=== PATIENT | female | born 1955 ===

== ENCOUNTER 2018-01-14 18:54 | Emergency (ER) | payer MEDICAID ==
--- NOTE | 2018-01-14 20:02 | ED PDOC ---
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 Patient is Romansh speaking, history obtained through scribe. Patient reports she was walking outside when a rock punctured through her flip flop and injured her left foot. Patient notes progressively worsening pain along the bottom of her sole. Patient denies any other injuries, fever, chills or any other complaints. Time/Duration: Other (2 days ago) Symptom Course: Worsening Quality: Other Context: Street Past Medical History - Provider Review Nursing Documentation Reviewed: Yes - Infectious Disease Hx of Infectious Diseases: None - Tetanus Immunization Tetanus Immunization: Unknown - Cardiac Hx Hyperlipemia: Yes - Psychiatric Hx Depression: No Hx Emotional Abuse: No Hx Physical Abuse: No Hx Substance Use: No - Surgical History Hx Section: Yes - Suicidal Assessment Feels Threatened In Home Enviroment: No Family/Social History - Physician Review Nursing Documentation Reviewed: Yes Family/Social History: No Known Family HX Smoking Status: Never Smoked Hx Alcohol Use: No Hx Substance Use: No Allergies/Home Meds Allergies/Adverse Reactions: Allergies pollen extracts Allergy (Verified 01/14/18 20:22) SWELLING Home Medications: Home Meds Medication Instructions Recorded Confirmed Aspirin [Aspirin Chewable] 81 mg PO DAILY 01/14/18 01/14/18 Atorvastatin [Lipitor] 10 mg PO DAILY 01/14/18 01/14/18 Review of Systems - Physician Review All systems were reviewed & negative as marked: Yes - Review of Systems Constitutional: absent: Fevers, Night Sweats Musculoskeletal: Other (left foot pain) Physical Exam Vital Signs Temp Pulse Resp BP Pulse Ox 01/14/18 20:15 98.5 F 71 18 108/71 97 Appearance: Positive for: Well-Appearing, Non-Toxic, Comfortable Pain Distress: None Mental Status: Positive for: Alert and Oriented X 3 - Systems Exam Head: Present: Atraumatic, Normocephalic Pupils: Present: PERRL Extroacular Muscles: Present: EOMI Conjunctiva: Present: Normal Lower Extremity: Present: Normal Inspection, NORMAL PULSES, Normal ROM, Neurovascularly Intact, Other (Minimal puncture to the plantar aspect of the left foot). No: Edema, Tenderness, Swelling, Erythema, Deformity, Temperature Abnormalties Neurological: Present: GCS=15, CN II-XII Intact, Speech Normal Skin: Present: Warm, Dry, Normal Color. No: Rashes Psychiatric: Present: Alert, Oriented x 3, Normal Insight, Normal Concentration Medical Decision Making ED Course and Treatment: 01/14/18 19:58 Impression: A 62 year old female with left foot pain Plan: -- Left foot xray -- Cipro and Toradol -- Reassess and disposition Progress Notes: 01/14/18 21:41 pt reassesed xr neg as read by me. no surroudning erythema, drainage, palpable foreign body, contrary to triage no erythema, however will give prophalactic antibitoics. advise close outpt fu. 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 No Sleep Is patient sleeping during reassessment? No Presence of Pain Presence of Pain Yes Pain Scale Used Pain Scale Used Numeric Location Left, Right or Bilateral Left IM Administration Charges Document 01/14/18 20:25 JOL (Rec: 01/14/18 20:25 JOL [id number]) Injection Site MAR Injection Site Left Deltoid Charges for Administration # of IM Administrations 1 - Scribe Statement The provider has reviewed the documentation as recorded by the Scribe Marielle Palomino Provider Scribe Attestation: All medical record entries made by the Scribe were at my direction and personally dictated by me. I have reviewed the chart and agree that the record accurately reflects my personal performance of the history, physical exam, medical decision making, and the department course for this patient. I have also personally directed, reviewed, and agree with the discharge instructions and disposition. Disposition/Present on Arrival - Present on Arrival Any Indicators Present on Arrival: No History of DVT/PE: No History of Uncontrolled Diabetes: No Urinary Catheter: No History Surgical Site Infection Following: None - Disposition Have Diagnosis and Disposition been Completed?: Yes Diagnosis: Puncture wound of foot Disposition: HOME/ ROUTINE Disposition Time: 09:45 Patient Problems: Current Active Problems Problem Status Onset Puncture wound of foot Acute Condition: STABLE Discharge Instructions (ExitCare): Wound Care Print Language: SAO TOMEAN Additional Instructions: follow up with specialist. you may need further eval and diagnostic workup as an outpatient. return to er with worsening symptoms or concerns. Prescriptions: Ciprofloxacin [Cipro] 500 mg PO BID #14 tab Referrals: Theo Cadet DPM [Staff Provider] - Follow up with primary Anayeli Rush DO [Primary Care Provider] - Follow up with primary
[2018-01-14 20:15] VITALS: BP 108/71; PULSE 71; RESP 18; TEMP 98.5; O2SAT 97
[2018-01-14 20:17] VITALS: BMI 26.8
--- NOTE | 2018-01-15 09:13 | RAD ---
PROCEDURE: Left Foot Radiographs. HISTORY: pain COMPARISON: None. FINDINGS: BONES: Normal. No fracture. JOINTS: Normal. SOFT TISSUES: Normal. OTHER FINDINGS: None. IMPRESSION: Normal left foot radiographs.
== END 2018-01-14 21:55 | disposition home or self-care (01) ==
LOC: ED 18:54
DX: S91.332A Puncture wound without foreign body, left foot, initial encounter (principal); W26.8XXA Contact with other sharp object(s), not elsewhere classified, initial encounter; Y93.01 Activity, walking, marching and hiking; Y92.410 Unspecified street and highway as the place of occurrence of the external cause; E78.5 Hyperlipidemia, unspecified
CPT/HCPCS: 73630; 96372; 99284; J1885

== ENCOUNTER 2018-11-20 11:09 | Emergency (ER) | payer MEDICAID ==
[2018-11-20 11:10] VITALS: BMI 26.8
[2018-11-20 12:05] VITALS: RESP 18; TEMP 97.4; O2SAT 99
--- NOTE | 2018-11-20 13:03 | ED PDOC ---
Arrival/HPI - General Chief Complaint: Back Pain Time Seen by Provider: 11/20/18 11:10 Historian: Patient - History of Present Illness Narrative History of Present Illness (Text): 11/20/18 12:14 63 year old female, whose past medical history includes hyperlipidemia, presents to the emergency department complaining of left hip pain for the past month. Patient states the pain originated near her left gluteal region and radiates down her left extremity. She notes the pain began a month ago when she fell in her kitchen. Patient reports the pain is worse with movement. She denies any weakness, numbness, and tingling sensation. Patient denies fevers, chills, headache, dizziness, chest pain, shortness of breath, dyspnea on exertion, cough, abdominal pain, nausea, vomiting, diarrhea, neck pain, or any other complaint. Time/Duration: < month Symptom Onset: Gradual Symptom Course: Unchanged Activities at Onset: Light Context: Home Past Medical History - Provider Review Nursing Documentation Reviewed: Yes - Infectious Disease Hx of Infectious Diseases: None - Tetanus Immunization Tetanus Immunization: Unknown - Cardiac Hx Cardiac Disorders: Yes - Pulmonary Hx Respiratory Disorders: No - Neurological Hx Neurological Disorder: No - HEENT Hx HEENT Disorder: No - Renal Hx Renal Disorder: No - Endocrine/Metabolic Hx Endocrine Disorders: No - Hematological/Oncological Hx Blood Disorders: No - Integumentary Hx Dermatological Disorder: No - Musculoskeletal/Rheumatological Hx Musculoskeletal Disorders: No - Genitourinary/Gynecological Hx Genitourinary Disorders: No - Psychiatric Hx Depression: No Hx Emotional Abuse: No Hx Physical Abuse: No Hx Substance Use: No - Surgical History Hx Section: Yes Hx Mastectomy: Yes (and lumpectomy R arm) - Anesthesia Hx Anesthesia: Yes Hx Anesthesia Reactions: No Hx Malignant Hyperthermia: No - Suicidal Assessment Feels Threatened In Home Enviroment: No Family/Social History - Physician Review Nursing Documentation Reviewed: Yes Family/Social History: No Known Family HX Smoking Status: Never Smoked Hx Alcohol Use: No Hx Substance Use: No Allergies/Home Meds Allergies/Adverse Reactions: Allergies pollen extracts Allergy (Verified 01/14/18 20:22) SWELLING Home Medications: Home Meds Medication Instructions Recorded Confirmed Aspirin [Aspirin Chewable] 81 mg PO DAILY 01/14/18 01/14/18 Atorvastatin [Lipitor] 10 mg PO DAILY 01/14/18 01/14/18 Review of Systems - Review of Systems Constitutional: absent: Fevers Eyes: absent: Vision Changes ENT: absent: Hearing Changes Respiratory: absent: SOB, Cough Cardiovascular: absent: Chest Pain, Palpitations, Edema Gastrointestinal: absent: Abdominal Pain, Constipation, Diarrhea, Nausea, Vomiting Genitourinary Female: absent: Dysuria, Frequency, Urine Output Changes Musculoskeletal: Other (left sided hip pain and gluteal pain that radiates down her leg. ). absent: Neck Pain Skin: absent: Rash Neurological: absent: Headache, Dizziness Physical Exam Vital Signs Reviewed: Yes Vital Signs Temp Pulse Resp BP Pulse Ox 11/20/18 11:10 97.4 F L 65 18 107/69 99 Temperature: Afebrile Blood Pressure: Normal Pulse: Regular Respiratory Rate: Normal Appearance: Positive for: Well-Appearing, Non-Toxic, Comfortable Pain Distress: None Mental Status: Positive for: Alert and Oriented X 3 - Systems Exam Head: Present: Atraumatic, Normocephalic Pupils: Present: PERRL Extroacular Muscles: Present: EOMI Conjunctiva: Present: Normal Mouth: Present: Moist Mucous Membranes Neck: Present: Normal Range of Motion Respiratory/Chest: Present: Clear to Auscultation, Good Air Exchange. No: Respiratory Distress, Accessory Muscle Use Cardiovascular: Present: Regular Rate and Rhythm, Normal S1, S2. No: Murmurs Abdomen: No: Tenderness, Distention, Peritoneal Signs Back: Present: Normal Inspection. No: CVA Tenderness, Midline Tenderness, Paraspinal Tenderness, Pain with Leg Raise Upper Extremity: Present: Normal Inspection. No: Cyanosis, Edema Lower Extremity: Present: Tenderness (to the left gluteal region). No: Edema Neurological: Present: GCS=15, CN II-XII Intact, Speech Normal Skin: Present: Warm, Dry, Normal Color. No: Rashes Psychiatric: Present: Alert, Oriented x 3, Normal Insight, Normal Concentration Medical Decision Making ED Course and Treatment: 11/20/18 12:14 Impression: 63 year old female who presents to the emergency department complaining of left sided hip pain. Tenderness to gluteal region with palpation Plan: -- Toradol -- Valium -- LS Spine X-ray -- Sacrum/ Coccyx X-ray -- Reassess and disposition Prior Visits: Notes and results from previous visits were reviewed. Progress Notes: 11/20/18 13:27 Xray Sacrum and Coccyx reviewed by radiologist, shows: IMPRESSION: No acute fracture. Xray LS spine reviewed by radiologist, shows: IMPRESSION: No acute fracture, spondylolysis or spondylolisthesis. Moderate degenerative disc disease at L5-S1. Cholelithiasis. 11/20/18 13:29 Patient ambulating around emergency department without issue. Presentation more consistent with sciatica pain. Neurologically intact with no midline pain. - RAD Interpretation Radiology Orders: 11/20/18 12:14 LS SPINE WITH OBL > 18 YRS OLD [RAD] Stat SACRUM &/or COCCYX (MIN 2VW) [RAD] Stat - Medication Orders Current Medication Orders: Discontinued Medications Diazepam (Valium) 5 mg PO STAT STA; Protocol Stop: 11/20/18 12:15 Ketorolac Tromethamine (Toradol) 30 mg IM STAT STA Stop: 11/20/18 12:15 - Scribe Statement The provider has reviewed the documentation as recorded by the Fransisco Perez Provider Scribe Attestation: All medical record entries made by the Scribbreanna were at my direction and personally dictated by me. I have reviewed the chart and agree that the record accurately reflects my personal performance of the history, physical exam, medical decision making, and the department course for this patient. I have also personally directed, reviewed, and agree with the discharge instructions and disposition. Disposition/Present on Arrival - Present on Arrival Any Indicators Present on Arrival: No History of DVT/PE: No History of Uncontrolled Diabetes: No Urinary Catheter: No History of Decub. Ulcer: No History Surgical Site Infection Following: None - Disposition Have Diagnosis and Disposition been Completed?: Yes Diagnosis: DJD (degenerative joint disease), Cholelithiasis, Sciatica Disposition: HOME/ ROUTINE Disposition Time: 13:28 Patient Plan: Discharge Condition: GOOD Discharge Instructions (ExitCare): Sciatica, Osteoarthritis, Sciatica Exercises Print Language: ROMANSH Additional Instructions: Follow-up with PMD within 2 days. Return to emergency department if condition worsens. Take motrin for pain. Prescriptions: Ibuprofen [Motrin] 400 mg PO Q6 PRN #30 tab PRN Reason: Pain, Moderate (4-7) Referrals: Anayeli Rush DO [Primary Care Provider] - Follow up with primary Forms: [employer] (Albanian)
--- NOTE | 2018-11-20 13:17 | RAD ---
Date of service: 11/20/2018 PROCEDURE: Radiographs of the Lumbar Spine. HISTORY: gluteal and L sided back pain after fall COMPARISON: No prior. FINDINGS: BONES: There is mild levo curvature in the lumbar spine. There is normal alignment of the lumbar vertebral bodies. There is exaggerated lumbar lordosis. There is no acute fracture. There is mild diffuse bone demineralization. There is no spondylolysis or spondylolisthesis. DISC SPACES: There is mild multilevel degenerative disc disease with anterior spurring, reduced disc heights and multilevel facet arthropathy, worse at L5-S1. OTHER FINDINGS: Incidentally noted are multiple gallstones. Both sacroiliac joints are normal. IMPRESSION: No acute fracture, spondylolysis or spondylolisthesis. Moderate degenerative disc disease at L5-S1. Cholelithiasis.
--- NOTE | 2018-11-20 13:18 | RAD ---
Date of service: 11/20/2018 PROCEDURE: Radiographs of the Sacrum and Coccyx HISTORY: gluteal and L sided back pain after fall COMPARISON: None available. TECHNIQUE: Frontal and lateral views of the sacrum and coccyx FINDINGS: BONES: Sacrum and coccyx are normal in appearance. No acute fracture or focal lesion. The sacrococcygeal angulation is normal. SACROILIAC JOINTS: Unremarkable. OTHER FINDINGS: None. IMPRESSION: No acute fracture.
[2018-11-20 13:36] VITALS: BP 100/68; PULSE 56
== END 2018-11-20 13:40 | disposition home or self-care (01) ==
LOC: ED 11:09
DX: K80.20 Calculus of gallbladder without cholecystitis without obstruction (principal); M54.30 Sciatica, unspecified side; M19.90 Unspecified osteoarthritis, unspecified site; E78.5 Hyperlipidemia, unspecified
CPT/HCPCS: 72110; 72220; 96372; 99283; J1885

== ENCOUNTER 2019-01-28 09:56 | Outpatient (CLI) | payer MEDICAID | END 2019-01-28 09:57 | disposition home or self-care (01) | LOC: RAD 09:56 ==